=== PATIENT | female | born 2000 | race Hispanic/Latino ===

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

== ENCOUNTER 2022-05-20 17:58 | Emergency (ER) | payer SELFPAY | END 2022-05-20 19:15 | disposition home or self-care (01) | LOC: ERS 17:58 | DX: R42 Dizziness and giddiness (principal); F17.210 Nicotine dependence, cigarettes, uncomplicated | CPT/HCPCS: 36416; 99284 ==